=== PATIENT | female | born 1995 | race Two or more races ===

== ENCOUNTER 2018-08-26 01:15 | Emergency (ER) | payer SELFPAY ==
[2018-08-26 01:28] VITALS: BP 113/77; PULSE 81; RESP 16; TEMP 97.9; O2SAT 95
--- NOTE | 2018-08-26 01:43 | ED PDOC ---
HPI: Psych/Substance Abuse Chief Complaint (Nursing): Alcohol Ingestion Chief Complaint (Provider): Alcohol Use History Per: Patient History/Exam Limitations: no limitations Onset/Duration Of Symptoms: Mins (30 minutes prior to presentation) Modifying Factor(s): Alcohol (Pt presents to the ED after falling asleep in an [employer] and being brought to the ED for alcohol intoxication; pt admits to using alcohol this evening; her gait is steady, her gaze is normal and she is speaking in articulate and complete sentences. The patient denies any condition or illness that requires medical attention) Severity: Mild Past Medical History Reviewed: Historical Data, Nursing Documentation, Vital Signs Vital Signs: Last Vital Signs Temp 97.9 F 08/26/18 01:26 Pulse 81 08/26/18 01:26 Resp 16 08/26/18 01:26 BP 113/77 08/26/18 01:26 Pulse Ox 95 08/26/18 01:26 - Family History Family History: States: Unknown Family Hx - Allergies Allergies/Adverse Reactions: Allergies Allergy/AdvReac Type Severity Reaction Status Date / Time No Known Allergies Allergy Verified 08/26/18 01:28 Review of Systems ROS Statement: Except As Marked, All Systems Reviewed And Found Negative (The patient denies all ROS) Physical Exam - Reviewed Nursing Documentation Reviewed: Yes Vital Signs Reviewed: Yes - Physical Exam Appears: Positive for: Well, Non-toxic, No Acute Distress. Negative for: Uncomfortable Head Exam: Positive for: ATRAUMATIC, NORMAL INSPECTION Skin: Positive for: Normal Color, Warm, Dry. Negative for: Diaphoresis, Pallor, Rash Eye Exam: Positive for: Normal appearance, EOMI, PERRL. Negative for: Nystagmus, Periorbital swelling, Periorbital tenderness Neck: Positive for: Normal, Painless ROM, Supple. Negative for: Decreased ROM Cardiovascular/Chest: Positive for: Regular Rate, Rhythm Respiratory: Positive for: Normal Breath Sounds Pulses-Carotid (L): 2+ Pulses-Carotid (R): 2+ Pulses-Radial (L): 2+ Pulses-Radial (R): 2+ Neurologic/Psych: Positive for: Alert, load mixer II-XII, Oriented, Cerebellar Tests, Gait. Negative for: Motor/Sensory Deficits, Aphasia - ECG O2 Sat by Pulse Oximetry: 95 Medical Decision Making Medical Decision Making: I: Alcohol Use P: Cerebellar Tests and discharge as appropriate Pt cerelbellar tests are negative; in addition, her gait is steady, her gaze is normal and she is speaking in articulate and complete sentences. The patient denies any condition or illness that requires medical attention Pt is requesting discharge Pt is stable for discharge Pt is safe for discharge Disposition - Clinical Impression Clinical Impression: Alcohol use - Disposition Disposition: Routine/Home Disposition Time: 01:46 Condition: STABLE Forms: [employer] (E[place]ian)
== END 2018-08-26 02:00 | disposition home or self-care (01) ==
LOC: H.ER 01:15
DX: F10.10 Alcohol abuse, uncomplicated (principal)